=== PATIENT | male | born 2000 ===

== ENCOUNTER 2024-06-22 17:13 | Emergency (ER) | payer OTHER ==
[2024-06-22 17:18] VITALS: BP 123/67; PULSE 63; RESP 18; TEMP 98; BMI 19.5
[2024-06-22] MEDS ORDERED: ACETAMINOPHEN 500 MG TABLET (FP) ONE (18:50)
[2024-06-22] MEDS ORDERED: IBUPROFEN 600 MG TABLET (FP) PO ONE (18:50)
[2024-06-22] MEDS: ACETAMINOPHEN 500 MG TABLET (FP) PO ONE (18:55)
[2024-06-22] MEDS: IBUPROFEN 600 MG TABLET (FP) PO ONE (18:55)
== END 2024-06-22 18:56 | disposition home or self-care (01) ==
LOC: JERFT 17:13
PROC: 2W3CX1Z Immobilization of Right Lower Arm using Splint (ICD-10-PCS; principal; 2024-06-22)
DX: S62.231A Other displaced fracture of base of first metacarpal bone, right hand, initial encounter for closed fracture (principal); W08.XXXA Fall from other furniture, initial encounter
CPT/HCPCS: 73110-TC-RT-FY; 73130-TC-RT-FY; 99283-25